=== PATIENT | female | born 1985 | race Caucasian/White ===

== ENCOUNTER 2022-04-04 13:51 | Outpatient (CLI) | payer MEDICAID ==
[2022-04-05 12:37] LABS: SARS-CoV-2 PCR by NAA Not Detected (NotDetected)
== END 2022-04-04 13:52 | disposition home or self-care (01) ==
LOC: CSHLAB 13:51
PROVIDERS: ATTEND Internal Medicine Critical Care Medicine
DX: Z20.822 Contact with and (suspected) exposure to COVID-19 (principal)
CPT/HCPCS: U0003; U0005

== ENCOUNTER 2022-04-09 14:31 | Outpatient (CLI) | payer OTHER ==
[2022-04-09 15:40] LABS: Actual Bicarbonate (HCO3a) 20.6 mEq/L (22-28); Base Excess (BEa) -5.8 mEq/L (-2.0 to +3.0); CO2 Tension 44.3 mmHg (35.0-45.0); Calcium, Ionized (arterial) 1.25 mmol/L (1.12-1.30); Carboxyhemoglobin (COHb) 0.3 gm% (0.0-3.0); Hemoglobin (Hb) 12.3 g/dL (12.0-16.0); O2 Tension (PaO2), arterial 77.6 mmHg (80.0-100.0); Potassium - ABG Lab 3.9 mmol/L (3.70-5.30); Puncture Site RRA; pH, Arterial 7.29 (7.35-7.45)
[2022-04-09 15:44] LABS: ALV-art Gradient 16.755 mmHg (0-20)
== END 2022-04-09 14:32 | disposition home or self-care (01) ==
LOC: CSHULT 14:31
PROVIDERS: ATTEND Internal Medicine Critical Care Medicine
DX: J45.909 Unspecified asthma, uncomplicated (principal); R94.2 Abnormal results of pulmonary function studies
CPT/HCPCS: 36600; 82805; 93306; 94010; 94726; 94729; 94760